=== PATIENT | male | born 1945 | race Caucasian/White ===

== ENCOUNTER 2018-07-19 07:36 | Observation (INO) ==
--- NOTE | 2018-07-19 09:56 | History & Physical Bridge Note ---
Date of Service July 19, 2018 History & Physical Bridge Note I have examined the patient, reviewed the History & Physical and in the interval since the performance of the History & Physical I have noted the following changes of clinical significance: MARU was negative for RUT thrombus and pt took his eliquis today
--- NOTE | 2018-07-19 09:56 | Pre Anesthesia Assessment ---
Date of Service July 19, 2018 Pre Sedation Assessment Vital Signs Temp Pulse Pulse Resp BP BP Pulse Ox 07/19/18 09:20 104 H 16 115/57 L 99 07/19/18 09:18 99 H 16 111/61 99 07/19/18 09:15 103 H 16 110/53 L 98 07/19/18 09:13 103 H 16 115/62 98 07/19/18 09:10 98 H 16 99/61 L 98 07/19/18 09:09 98 07/19/18 09:07 111 H 16 98/59 L 99 07/19/18 09:05 99 H 16 119/66 99 07/19/18 09:02 100 H 16 134/95 134/95 99 07/19/18 08:04 36.7 C 102 H 16 146/63 H 99 Pre-Sedation Airway Assessment Smoking Status: Current every day smoker Hx Sleep Apnea: No Short, Thick Neck: No Thyromental Distance: > or= 3.5 Finger Breadths Oral Cavity: + Dentures Mallampati Class: IV ASA: ASA3 NPO Status Date of Last Intake of Fluids: 07/18/18 Time of Last Intake of Fluids: 23:00 Date of Last Intake of Solid Food: 07/18/18 Time of Last Intake of Solid Foods: 23:00 Notes The planned sedation has been discussed with the patient. Informed Consent was obtained. I have identified the patient, determined the appropriateness of sedation and have assessed the patient immediately prior to the procedure. All medicine(s) and interventions are by my order.
--- NOTE | 2018-07-19 13:19 | Post Anesthesia Assessment ---
Date of Service July 19, 2018 Post Sedation Assessment Vital Signs Temp Pulse Pulse Resp BP BP Pulse Ox 07/19/18 09:20 104 H 16 115/57 L 99 07/19/18 09:18 99 H 16 111/61 99 07/19/18 09:15 103 H 16 110/53 L 98 07/19/18 09:13 103 H 16 115/62 98 07/19/18 09:10 98 H 16 99/61 L 98 07/19/18 09:09 98 07/19/18 09:07 111 H 16 98/59 L 99 07/19/18 09:05 99 H 16 119/66 99 07/19/18 09:02 100 H 16 134/95 134/95 99 07/19/18 08:04 36.7 C 102 H 16 146/63 H 99 Recovery Score Activity: Moves 4 extremities Respiration: Deep Breath/Cough Circulation: +/-20% PreAnes Value Consciousness: Fully Awake Oxygen Saturation: > 92% On Room Air Discharge Sedation Level of Care: Fast Track Phase II Post Sedation Plan On clinical assessment, the patient appears to have tolerated the sedation without complications. Patient is recovering as anticipated. Patient will continue to be monitored by nursing and may be discharged when sedation discharge criteria are met per below protocol. Upon Completions of procedure and additional 15 minutes continue every 5 minute vital signs and the P.A.R. score; then discharge to a Phase I or Fast Track to Phase II per the following guidelines: * Discharge Patient to appropriate Phase II area if PAR is 8 or greater or return to pre- procedure baseline. The post - procedure orders will be as directed. * If PAR score is less than 8 or not return to pre-procedure baseline then patient will follow Phase I monitoring till PAR is reached for Phase II. The Phase I may be done in procedure room or may call to secure a Phase I area. * If naloxone or flumazenil are used for reversal, hold in Phase I for continued monitoring from when last reversal dose was given for a minimum of 60 minutes or longer pending the nurse and/or physician discretion of patient condition before discharge to Phase II. Please call the Sedation Physician to re-evaluate and complete post-note for discharge to Phase II area. Do NOT discharge from procedure sedation or Phase 1 until post- sedation evaluation note is complete by procedure /sedation MD Sedation Discharge Instructions to be given to the patient at discharge to home.
--- NOTE | 2018-07-19 13:21 | Operative Report ---
Post Operative Report Pre & Post Diagnosis Pre Op: Persistent atrial flutter Post OP: sinus rhythm with bidirectional block across the CTI Operation Date: 07/19/18 09:00 <No data on this case meets the specified criteria> Operation Date: 07/19/18 10:45 <No data on this case meets the specified criteria> Procedure Operation Date: 07/19/18 09:00 Actual Procedures p Transesophageal Echo - Oscar Treviño DO Operation Date: 07/19/18 10:45 EPS C/S pacing Peripheral venogram 3D mapping of Atrial flutter LA pacing U/S guidance venous access Radiofrequency ablation of CTI Surgeon Shi Escobar, DO Rotor Coil Taper none Estimated Blood Loss 5 Findings Consistent with Post-Op Diagnosis Specimens none Description of Procedure see official report I attest to the content of the Intraoperative Record and any orders documented therein. Any exceptions are noted below.
[2018-07-19] MEDS ORDERED: OXYCODONE/ACETAMINOPHEN 5mg/325mg TAB PO PRN (13:23)
[2018-07-19] MEDS ORDERED: ACETAMINOPHEN 325 MG TAB PO PRN (13:23)
--- NOTE | 2018-07-19 13:33 | Discharge Summary ---
Date of Service July 19, 2018 Admission HPI Pt admitted for elective EPS and atrial flutter ablation after a MARU that was negative for any RUT thrombus. Admission Exam Per Admitting Provider aaox3, NAD NC/AT, EOMI Supple No JVD Nrl S1/S2, No murmur CTA b/l no w/r/r soft nt/nd no LE edema b/l skin intact no focal deficits Principal Diagnosis Principal Diagnosis persistent atrial flutter s/p ablation Discharge Exam aaox3, NAD NC/AT, EOMI Supple No JVD Nrl S1/S2, No murmur CTA b/l no w/r/r soft nt/nd no LE edema b/l skin intact no focal deficits b/l groins soft, no hematoma Discharge Data Allergies Allergy/AdvReac Type Severity Reaction Status Date / Time Tetanus Vaccines and Toxoid Allergy Verified 07/19/18 08:15 Procedures Performed Operation Date: 07/19/18 09:00 Actual Procedures p Transesophageal Echo - Oscar Treviño DO Operation Date: 07/19/18 10:45 Actual Procedures p EPS + Ablation for SVT Flutter - Shi Escobar DO Hospital Course (1) Atrial flutter: Total Time Total Time Spent Total Time Spent (In Minutes): 30 Total Time Includes: Examination of the Patient, Discharge Planning, Medication Reconciliation and Other Discharge Plan Discharge Items Patient Disposition: Home - Self-Care Reason For Visit: Atrial Flutter Discharge Diagnosis: persistent atrial flutter s/p ablation Condition: Good Discharge Goals: Improve function Activity: As commented below Lifting: No more than 10 pounds Lifting Comment: do not do any heavy lifting (more than 10 pounds) or squating for 1 week Bathing: No limitations Sexual Activity: After one week Driving/Machine Use: Resume 1 day after discharge Non-emergency contact: Pre K Lead Teacher Call non-emergency contact if: you have any medication questions Follow-up/Referrals: Keny De Leon MD [Primary Care Provider] - Diet: Heart Healthy Addtl Provider Instructions: f/u with Dr. Escobar as scheduled in 1 month Prescriptions: Continued atorvastatin 40 mg Tablet 40 mg DAILY RF: 0 venlafaxine 75 mg Capsule,Extended Release 24hr 225 mg PO DAILY RF: 0 prazosin 1 mg Capsule 3 mg PO HS RF: 0 tamsulosin 0.4 mg Capsule 0.4 mg PO DAILY RF: 0 aspirin 81 mg Tablet,Chewable 81 mg DAILY RF: 0 mirtazapine 15 mg Tablet 15 mg PO HS RF: 0 morphine 15 mg Tablet 15 mg PO Q8 PRN (Reason: Pain) RF: 0 atenolol 50 mg Tablet 50 mg PO DAILY RF: 0 hydrocodone-acetaminophen [Vicodin HP] 10-300 mg Tablet 1 tab PO Q12H PRN (Reason: Pain) RF: 0 pregabalin 100 mg Capsule 100 mg PO BID RF: 0 Eliquis 5 mg Tablet 5 mg BID RF: 0 Combivent Respimat 20-100 mcg/actuation Mist 1 puff INHALATION Q8 RF: 0 Discontinued diltiazem HCl 300 mg Capsule,Extended Release 24 Hr 300 mg PO DAILY RF: 0 No Action latanoprost [Xalatan] 0.005 % Drops 1 drp ophthalmic (eye) HS RF: 0 metformin 500 mg Tablet 500 mg PO BID RF: 0 magnesium oxide 420 mg Tablet 420 mg PO DAILY RF: 0 insulin glargine 100 unit/mL Solution 30 unit SUBCUT HS RF: 0 melatonin 3 mg Tablet 3 mg PO HS RF: 0 ranitidine HCl 150 mg Capsule 300 mg PO HS RF: 0 vitamin E 400 unit Capsule 400 unit PO DAILY RF: 0 glipizide 5 mg Tablet 2.5 mg PO BID RF: 0 guaifenesin 400 mg Tablet 400 mg PO TID RF: 0 Prilosec OTC 20 mg Tablet,Delayed Release (Dr/Ec) 20 mg PO BID RF: 0 Symbicort 160-4.5 mcg/actuation Hfa Aerosol Inhaler 2 puff INHALATION BID RF: 0 cholecalciferol (vitamin D3) 2,000 unit Capsule 2,000 unit PO DAILY RF: 0 Hydrophilic Ointment Base(Fag) Ointment See Rx Instructions .ROUTE .COMPLEX PRN (Reason: Dry Skin) RF: 0 Stand-Alone Forms: [facility] Discharge Orders: Discharge Order (Routine); Ordered 07/20/18 Ordered By: Shi Escobar Admission Data Admit Date/Time: 07/19/18 13:54 Attending Provider: Shi Escobar Admit Provider: Shi Escobar Primary Care Provider: Keny De Leon Other Providers: Oscar Treviño Service: Telemetry
[2018-07-19] MEDS ORDERED: MoRPHine SULFATE IR 15 MG TAB (IMMEDIATE RELEASE) PO PRN (14:54)
[2018-07-19] MEDS ORDERED: ALBUT/IPRATROP 3MG/0.5MG NEB 3 ML VIAL NEB PRN (14:56)
[2018-07-19] MEDS ORDERED: HYDROCODONE/ACETAMINOPHEN 10/325 TAB PO PRN (15:04)
[2018-07-19] MEDS ORDERED: HYDROPHILIC OINTMENT EXT PRN (15:07)
[2018-07-19] MEDS ORDERED: PHARMACY GLYCEMIC MGMT CONSULT PRN (15:09)
[2018-07-19] MEDS ORDERED: GLUCAGON FOR INJ 1 MG VIAL IM PRN ×2 (15:15)
[2018-07-19] MEDS ORDERED: GLUCOSE 10 TABS/TUBE PO PRN ×2 (15:15)
[2018-07-19] MEDS ORDERED: CARBOHYDRATES FOR HYPOGLYCEMIA PO PRN ×2 (15:15)
[2018-07-19] MEDS ORDERED: DEXTROSE 50% 50 ML SYRINGE IV PRN ×2 (15:15)
[2018-07-19] MEDS ORDERED: GLUCOSE 40% GEL 15 GM TUBE PO PRN ×2 (15:15)
[2018-07-19] MEDS: INSULIN ASPART 100 UNITS/ML 3 ML PEN SC SCH ×3 (16:54→20:58)
[2018-07-19] MEDS: APIXABAN 5 MG TABLET PO SCH (20:47)
[2018-07-19] MEDS: PREGABALIN 100 MG CAP PO SCH (20:48)
[2018-07-19] MEDS: guaiFENesin 200 MG TAB PO SCH (20:50)
[2018-07-19] MEDS: PANTOprazole 40 MG TAB PO SCH (20:51)
[2018-07-19] MEDS: BUDESONIDE/FORMOTEROL FUMARATE 160/4.5 60 PUFFS/INHALER INH SCH (20:52)
[2018-07-19] MEDS: IPRATROPIUM BROMIDE/ALBUTEROL respimat INH INH SCH (20:54)
[2018-07-19] MEDS ORDERED: LATANOPROST 0.005% OP SOLN 2.5 ML BTL OP SCH (21:00)
[2018-07-19] MEDS ORDERED: METFORMIN HCL 500 MG TAB PO SCH (21:00)
[2018-07-19] MEDS ORDERED: INSULIN GLARGINE SOLOSTAR 100 UNITS/ML 3 ML PEN SC SCH (21:00)
[2018-07-19] MEDS ORDERED: MIRTAZAPINE TAB 15 MG TAB PO SCH (21:00)
[2018-07-19] MEDS ORDERED: glipiZIDE 5 MG TAB PO SCH (21:00)
[2018-07-19] MEDS ORDERED: PRAZOSIN HCL 1 MG CAP PO SCH (21:00)
[2018-07-20] MEDS: IPRATROPIUM BROMIDE/ALBUTEROL respimat INH INH SCH (05:06)
--- NOTE | 2018-07-20 07:57 | Operative Report ---
DATE OF OPERATION: 07/19/2018 PREOPERATIVE DIAGNOSIS: Persistent atrial flutter and negative MARU for left atrial appendage. POSTOPERATIVE DIAGNOSES: Persistent atrial flutter and negative MARU for left atrial appendage in addition to bidirectional block along the cavotricuspid isthmus. SURGEON: Shi Escobar DO PROCEDURE: An electrophysiology study, 3D activation mapping of the right atrial counterclockwise flutter as well as anatomical mapping of the His bundle coronary sinus os and CTI, radiofrequency ablation of the cavotricuspid isthmus, left atrial pacing, peripheral venogram, ultrasound guidance for venous access. COMPLICATIONS: None. CONDITION: Stable. URINE OUTPUT: Not applicable. SPECIMENS: None. FINDINGS: See below. ANESTHESIA: Monitored conscious sedation administered under my supervision by Jennifer Damon, start time 0954, end time 1314, a total of 6 mg of Versed, 325 mcg of fentanyl. INTRAVENOUS FLUIDS: 750 mL. ADDITIONAL MEDICATIONS: 2 mg of morphine as well as 20 mL of IV contrast. BLOOD LOSS: Less than 5 mL. INDICATIONS: This is a 73-year-old gentleman with a past medical history for persistent typical atrial flutter, on Eliquis and atenolol as well as Cardizem, CHADS2-VASc score of 2, hypertension, hyperlipidemia, diabetes, and probable sleep apnea. Due to his symptomatic persistent atrial flutter, he was recommended an EP study and possible atrial flutter ablation, but prior to this since he did miss a couple of doses of his Eliquis, he would need a MARU. CONSENT: Consent was obtained prior to the patient going into the electrophysiology lab. The patient was informed of the risks, benefits, alternatives to the procedure. Risks include but not limited to sudden cardiac , cardiac arrhythmias, cerebrovascular accident, myocardial infarction, injury to the blood vessels, chamber of the heart, inaja electrical system where he would need a permanent pacemaker, bleeding and infection. The patient understood these risks and agreed to the procedure as planned. Informed consent was obtained. DESCRIPTION OF THE PROCEDURE: The patient was brought into electrophysiology lab in fasting state. He was connected to continuous cardiac monitoring. A timeout was performed to ensure patient identity and procedure correctly. The patient was prepped and draped over the bilateral groins in normal surgical standard fashion. Monitored conscious sedation was given throughout the procedure for the patient's comfort level. [place] precautions were maintained throughout the procedure. A 10 mL of 1% lidocaine and bupivacaine mixture were given in the bilateral groins for local anesthesia. Using modified Seldinger technique, venous access was obtained in the following manner. I got venous access in the left femoral vein using a micropuncture kit and that wire went in fine and the 5-[place] sheath went in fine and then when I was putting the regular guidewire and I found a little bit of resistance, but then redirected and it seemed to go fine. So, a 7-[place] sheath was placed over that followed then by the second access using the modified Seldinger technique and a micropuncture kit and I did not feel any resistance with a normal guidewire or the 7-[place] sheath. However, then when I tried to get the catheter up, I felt some resistance again and it looked like I was going towards the left side of the spine, so I was concerned that maybe did I cause an AV fistula. So I then gave contrast through both 7-[place] sheaths and we felt that the patient has a very high takeoff to crossing over to the spine and there was a little bit of a very small branch right in that area and that is where my wire must have gotten hung up and when I felt that resistance as well as with the catheter, there was no damage and there was no AV fistula. So I had now the road map of the peripheral venogram and was able to then guide my catheters up. But since there were some issues with the left femoral venous site, I did remove one of the 7-[place] sheaths because I had pulled it back a lot and placed a new 7-[place] sheath on the right femoral venous site without any problems. So I opted to then instead put the second 7-[place] sheath in the right femoral vein and that had the Halo catheter positioned around the right atrium and then the 6-[place] sheath in the right femoral vein was swapped out for an SRO sheath. With the catheters in place, I then first did pacing around the coronary sinus from the coronary sinus catheter and felt that when I paced coronary sinus proximal measured at the Halo distal, which was right on the isthmus, my PPI was 60, when I went out lateral distal to the coronary sinus, coronary sinus 7-8 pacing the PPI-TCL was 70, and when I paced Halo distal which was right on the isthmus, my tachycardia cycle length minus PPI was 14. Of note, the atrial flutter was counterclockwise at 210 milliseconds, sometimes 220 milliseconds. I then placed the ablation catheter up and did 3D activation mapping of the counterclockwise atrial flutter. Then I placed the ablation catheter on the isthmus and I got a tachycardia cycle length minus PPI of 2 and I possibly found the His while he was in atrial flutter and did a little bit of 3D anatomical mapping of that as well as the coronary sinus os. Then I positioned the ablation catheter on the tricuspid valve lower end and dragged it back from the tricuspid valve down to the IVC-RA junction along the cavotricuspid isthmus giving a series of radiofrequency simon of anywhere from 30 lee to sometimes 35 lee. There was some outpocketings as well and the patient was moving a lot, so my maps did get a little distorted. The circuit would not break though and I gave another line medial and another line a little bit more medial. Then when I was moving the catheter around the right atrium, I am not sure exactly, but somehow I bumped something and the patient went into sinus rhythm, so that perplexed us a little bit more. We started coronary sinus proximal pacing at 600 milliseconds and it did not look blocked based on the Halo pattern, so I gave another series of radiofrequency simon a little bit lateral to my line as well as out more by the valve and then a little bit more in this outpocketing and at this point I felt like I had given a lot of simon, so when we paced Halo distal and measured at the CS prox, the activation looked blocked as well as our measurement was 146 milliseconds, but when I would pace CS prox and measure to Halo distal, I only got 124 milliseconds and it never looked blocked. However, when I moved the ablation catheter lateral to my line and paced CS prox and measured to the ablation, I got 144 milliseconds and when I paced off the ablation catheter, which was lateral to my line and measured it to the coronary sinus prox, I got 164 milliseconds. Both times, those activations looked blocked, so I think may be that the distal pole of my Halo catheter was maybe a little bit more posterior somehow sitting a little bit different than I realized that fooled me, because even when I paced, I paced Halo 3 and measured the CS prox and I got 156 milliseconds, I paced to Halo 9, so I was medial to my line and measured the CS prox and I got 68 milliseconds and when I paced CS 756 and measured the Halo distal, I got 128 milliseconds. So having bidirectional block, I then performed an electrophysiology study with the following findings: The ND interval was 216 milliseconds, QRS 94 milliseconds, QT 302 milliseconds. The sinus cycle length was 814 milliseconds, the AH was 114 milliseconds, the HV was 40 milliseconds. The AV Wenckebach was 360 milliseconds, the AV node ERP was 600/300 and 400/320. The atrial ERP was 600/200 and 400/200. I then placed the ablation catheter into the right ventricle and the RV ERP was 600/220 and 400/200. IMPRESSION: Successful bidirectional cavotricuspid isthmus block and conversion to sinus rhythm of radiofrequency ablation of persistent atrial flutter. PLAN: Monitor patient overnight, 12-lead ECG. We will stop his diltiazem, but we will continue his atenolol as well as his Eliquis for at least 1 month. He would probably benefit from a sleep apnea study as well as possibly even an ischemic workup at some point. I will see him back in my office in 1 month's time. He is no heavy lifting or squatting for 1 week. I attest to the content of the Intraoperative Record and any orders documented therein. Any exceptions are noted below. KAY
[2018-07-20] MEDS: APIXABAN 5 MG TABLET PO SCH (08:33)
[2018-07-20] MEDS: INSULIN ASPART 100 UNITS/ML 3 ML PEN SC SCH (08:33)
[2018-07-20] MEDS: PANTOprazole 40 MG TAB PO SCH (08:34)
[2018-07-20] MEDS: guaiFENesin 200 MG TAB PO SCH (08:34)
[2018-07-20] MEDS: BUDESONIDE/FORMOTEROL FUMARATE 160/4.5 60 PUFFS/INHALER INH SCH (08:35)
[2018-07-20] MEDS: PREGABALIN 100 MG CAP PO SCH (08:36)
[2018-07-20] MEDS ORDERED: ATENOLOL 50 MG TABLET PO SCH (09:00)
[2018-07-20] MEDS ORDERED: CHOLECALCIFEROL 1,000 UNITS TAB PO SCH (09:00)
[2018-07-20] MEDS ORDERED: ASPIRIN 81 MG ECTAB PO SCH (09:00)
[2018-07-20] MEDS ORDERED: TAMSULOSIN HCL 0.4 MG CAP PO SCH (09:00)
[2018-07-20] MEDS ORDERED: ATORVASTATIN 40 MG TAB PO SCH (09:00)
[2018-07-20] MEDS ORDERED: TOCOPHERYL, DL-ALPHA 400 UNITS CAP PO SCH (09:00)
[2018-07-20] MEDS ORDERED: VENLAFAXINE HCL XR 75 MG CAPXR PO SCH (09:00)
[2018-07-20] MEDS ORDERED: MAGNESIUM OXIDE 400 MG TAB PO SCH (09:00)
--- NOTE | 2018-07-20 09:00 | Pharmacy Report ---
Glycemic Control Consultation - Date of Service July 20, 2018 - Scope Scope: Glycemic Pharmacist consulted by Dr Escobar on 07/19 for glycemic control and to write orders per [facility] inpatient glycemic control protocol - Objective Weight: 102 kg Accuchecks BSG (last 24hrs): 07/19/18 07/19/18 07/20/18 14:48 20:58 08:31 POC Glucose 121 H 109 H 128 H - Recent Pertinent Medications Outpatient Anti-diabetic Regimen: * Glipizide 2.5 mg BID * Lantus 30 units qHS * Metformin 500 mg BID * No A1c available The patient is currently receiving: * Basal insulin: Lantus 20 - 30 units qHS, per a scale * Correctional Insulin: Novolog Correction per scale ACHS Goal Range: Low 110 mg/dL - High 140 mg/dL Correction Factor: 25 mg/dL/unit * Prandial insulin: Per carb ratio of 1 unit per 8 grams CHO consumed * Oral Agents: None at this time Risk Factors for Insulin Resistance: * Recent Surgery: POD 1 s/p cardiac ablation and pacing * Diet: type 2 diabetes - Assessment & Plan Assessment & Plan: ASSESSMENT: * 73 y/o male admitted for observation s/p cardiac ablation. Basal + bolus insulin initiated last evening in place of oral agents. Basal dose was ordered per a scale in case BSGs remained low after reduce po intake. BSGs remain stable, with a fasting of 128 mg/dL this AM. PLAN FOR INPATIENT GLYCEMIC CONTROL: * Holding outpatient oral diabetes medications - can resume on discharge * Basal insulin - no change * Lantus qHS per the following scale: * 20 units for BSG < 120 * 25 units for BSG 120-180 * 30 units for BSG > 180 * Bolus insulin - no change * NovoLog per scale ACHS or Q6hrs while NPO * Goal Range: Low 110 mg/dL - High 140 mg/dL * Correction Factor: 25 mg/dL/unit * Nutritional / Prandial insulin per carb ratio of 1 unit per 8 grams CHO consumed Discharge Recommendations: * A1c unknown and patient being discharged this AM so unable to obtain prior to discharge * As long as patient not experiencing low BSGs at home, it would be reasonable to continue same regimen on discharge Thank you.
--- OUTSIDE RECORDS SUMMARY | 2018-07-24 20:04 | External Medical Summary | Continuity of Care Document ---
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 Refills: 0 Sodium Chloride (Hypertonic) 5 % Ophthalmic Solution Refills: 0 Tamsulosin HCl - 0.4 MG Oral Capsule; TAKE 1 CAPSULE Daily Refills: 0 Venlafaxine HCl - 75 MG Oral Tablet; TAKE 3 TABLETS EVERY MO RNING Refills: 0 Vitamin E 400 UNIT Oral Capsule; TAKE 1 CAPSULE Daily Refills: 0 Aspirin 81 MG TABS; TAKE 1 TABLET DAILY. Refills: 0 Lyrica 100 MG Oral Capsule; Take 1 capsule twice daily Refills: 0 Prazosin HCl - 1 MG Oral Capsule; TAKE 3 CAPSULES AT BEDTIME FOR NIGHTMARES Refills: 0 Omeprazole 20 MG Oral Capsule Delayed Release; TAKE 1 CAPSUL E TWICE DAILY. Refills: 0 Nicotine PT24 Refills: 0 Nicotine 14 MG/24HR Transdermal Patch 24 Hour Refills: 0 Morphine Sulfate 15 MG TBSO; TAKE 1 TABLET Twice daily for p ain Refills: 0 Mirtazapine 15 MG Oral Tablet; TAKE 1 TABLET AT BEDTIME. Refills: 0 metFORMIN HCl - 500 MG Oral Tablet; TAKE 1 TABLET TWICE JESUS Y. Refills: 0 Meloxicam 15 MG Oral Tablet; TAKE 1 TABLET DAILY. Refills: 0 Melatonin 3 MG Oral Capsule; TAKE 1 CAPS ULE AT BEDTIME 2 HOURS BEFORE BED FOR INSOMNIA Refills: 0 Magnesium Oxide 420 (252 Mg) MG Oral Tablet; Take 1 tablet d aily Refills: 0 Ipratropium-Albuterol 0.5-2.5 (3) MG/3ML Inhalation Solution; USE 1 VIAL EVERY 8 HOURS NEEDED 3 ML Plas Cont Refills: 0 Albuterol AERS; INHALE 2 PUFFS EVERY 8 HOURS NEEDED Refills: 0 Eliquis 5 MG Oral Tablet; TAKE 1 TABLET EVERY 12 HOURS FOR A TRIAL FIB Refills: 0 Atenolol 50 MG Oral Tablet; TAKE 1 TABLET DAILY. 100 Tablet Bottle Refills: 0 Atorvastatin Calcium 40 MG Oral Tablet; TAKE 1/2 TABLET JESUS Y. 90 Tablet Bottle Refills: 0 Symbicort 160-4.5 MCG/ACT Inhalation Aer osol; INHALE 2 PUFFS TWICE DAILY. RINSE MOUTH AFTER USE. 6 GM Inhaler Refills: 0 Vitamin D3 09699 UNIT Oral Tablet; Take 1 tablet daily Refills: 0 DilTIAZem CD 300 MG CP24; TAKE 1 CAPSULE Daily Refills: 0 glipiZIDE 5 MG Oral Tablet; take 1/2 tablet twice daily Refills: 0 guaiFENesin 200 MG Oral Tablet; TAKE 2 TABLETS TWICE DAILY Refills: 0 HYDROcodone-Acetaminophen 10-325 MG Oral Tablet; take 1 tablet twice daily as needed Refills: 0 Hydrophilic OINT Refills: 0 Latanoprost 0.005 % Ophthalmic Solution Refills: 0 Procedures Procedures not documented Immunizations Immunizations not documented Social History - Smoking Status Current every day smoker Plan of Treatment Planned Encounters Appointment; Onur Estrada DO Start: 29-Aug-2018 10:[address] Planned Observations Planned Goals not documented Results No Known Results Results not documented Encounters Appointment; Onur Estrada DO 19-Jul-2018 9:00 Encounter Diagnosis: Problem not documented Appointment; nOur Estrada DO 29-Aug-2018 10:30 Encounter Diagnosis: Problem not documented
== END 2018-07-20 11:00 | disposition home or self-care (01) ==
LOC: 1E 07:36 → ASU 07:36 → 2S 13:55
PROC: CLS.TEE (2018-07-19 09:00)